=== PATIENT | male | born 1965 | race Caucasian/White ===

== ENCOUNTER 2022-08-23 10:01 | Emergency (ER) | payer OTHER ==
[2022-08-23 11:58] LABS: BASE EXCESS ARTERIAL 1.1 (-2-2.0); BICARBONATE,ARTERIAL 26.2 meq/L (22.0-26.0); O2 SATURATION ARTERIAL 95.9 % (96.0-97.0); PCO2 ARTERIAL 45.5 mmHg (35.0-45.0)
[2022-08-23 12:10] LABS: BASOPHILS ABSOLUTE AUTO 0.06 K/mm3 (0.01-0.08); BASOPHILS PERCENT AUTO 0.5 % (0.1-1.2); EOSINOPHILS ABSOLUTE AUTO 0.12 K/mm3 (0.04-0.54); HEMATOCRIT 45.5 % (40.1-51.0); HEMOGLOBIN 15.3 gm/dl (13.7-17.5); IMMATURE GRAN ABSOLUTE AUTO 0.04 K/mm3 (0.00-0.10); IMMATURE GRAN PERCENT AUTO 0.3 % (<=1.0); LYMPHOCYTES PERCENT AUTO 13.9 % (21.8-53.1); MEAN CORPUSCULAR HEMOGLOBIN 28.5 pg (25.7-32.2); MEAN CORPUSCULAR HGB CONC 33.6 g/dl (32.2-35.5); MEAN CORPUSCULAR VOLUME 84.9 fl (79.0-92.2); MONOCYTES ABSOLUTE AUTO 0.94 K/mm3 (0.30-0.82); MONOCYTES PERCENT AUTO 7.7 % (5.3-12.2); NEUTROPHILS PERCENT AUTO 76.6 % (34.0-67.9); PLATELET COUNT,PLT 271 K/mm3 (163-337); RED BLOOD CELL COUNT 5.36 M/mm3 (4.63-6.08); WHITE BLOOD CELL COUNT,WBC 12.26 K/mm3 (4.23-9.07)
[2022-08-23 12:26] LABS: INR 0.97; PROTHROMBIN TIME 10.4 SECONDS (9.7-12.0)
[2022-08-23 12:27] LABS: CORONAVIRUS COVID-19 NAA NEGATIVE (NEGATIVE); INFLUENZA A NAA NEGATIVE (NEGATIVE); RESPIRATORY SYNCYTIAL VIR NAA NEGATIVE (NEGATIVE)
[2022-08-23 12:29] LABS: D-DIMER QUANTITATIVE 0.6 mg/L (0.19-0.50)
[2022-08-23 12:47] LABS: A/G RATIO 0.8 (1-2); ALBUMIN 3.4 g/dl (3.4-5.0); ANION GAP 10.6 (5-15); BILIRUBIN TOTAL 0.4 mg/dL (0.2-1.0); CALCIUM 9.3 mg/dL (8.5-10.1); EST CRCL DRUG DOSING (CG) 80.75 mL/min; MAGNESIUM 1.8 mg/dL (1.8-2.4); POTASSIUM,K 4.6 mEq/L (3.5-5.1); PROTEIN TOTAL,TP 7.9 g/dl (6.4-8.2); TSH 1.317 uIU/mL (0.358-3.74)
== END 2022-08-23 13:46 | disposition home or self-care (01) ==
LOC: JD.ED 10:01
DX: F41.9 Anxiety disorder, unspecified (principal); F17.210 Nicotine dependence, cigarettes, uncomplicated; E66.9 Obesity, unspecified; Z68.36 Body mass index [BMI] 36.0-36.9, adult; Z88.1 Allergy status to other antibiotic agents; Z86.16 Personal history of COVID-19; Z90.49 Acquired absence of other specified parts of digestive tract; Z20.822 Contact with and (suspected) exposure to COVID-19
CPT/HCPCS: 0241U; 36415; 36600; 71046; 80053; 82803; 83735; 83880; 84443; 84484; 85025; 85379; 85610; 85730; 93005; 99284; 93010